=== PATIENT | male | born 1985 | race Caucasian/White ===

== ENCOUNTER 2024-11-24 09:03 | Emergency (ER) | payer OTHER, SELFPAY ==
[2024-11-24 09:05] VITALS: BP 142/104
--- NOTE | 2024-11-24 09:57 | ED.GENMED ---
History of Present Illness
General
Chief Complaint: Blood Sugar Problem
Source: patient
Time Seen by Provider: 11/24/24 09:46
History of Present Illness
History of Present Illness:
39-year-old male with past medical history of previously diagnosed type 2 diabetes (admits that he stopped taking his metformin well over a year ago) presenting to the emergency department after starting to check his blood sugars over the last 2
weeks noting that his blood sugars will go up as high as 270 as well as he has been having increased urinary frequency at nighttime. Patient denies any other symptoms but was concerned that he could still be diabetic and may need medication.
Patient states that he did start taking his metformin again a couple of days ago but states he has not noticed any change to his blood sugars during this time. Patient denies any abdominal pain, nausea, vomiting, bowel changes, chest pain
or shortness of breath, fevers or infectious symptoms or any other concerns.
Past History
Past History
ED Past Medical History: NIDDM
ED Past Surgical History: Appendectomy
Social History
Tobacco: Non-smoker
Alcohol: Occasional
Drug: None
Personal:
Living: with family
Employment: Employed
Review of Systems
Review of Systems
All Other Systems: ROS reviewed and negative except as documented in HPI and ROS
Phy Exam
Physical Exam
Physical Exam:
GENERAL: Alert , in no apparent distress
EYE: conjunctiva clear
NECK: Supple
ENT: o/p clr, mmm.
CARDIAC: Regular rate and rhythm
LUNGS: Clear breath sounds bilaterally, no acute respiratory distress, no wheezes/rales/rhonchi
NEUROLOGICAL: Alert and oriented
SKIN: Warm and dry, skin intact.
MUSCULOSKELETAL: well perfused.
PSYCH: Normal and appropriate interaction.
Scores
Heart Failure Risk
Heart Failure Risk Score: Not Applicable
Heart Score for Chest Pain Patients
STEMI patient?: Not applicable
Withdrawal Assessment of Alcohol
Withdrawal Assessment Completed?: Not applicable
Course
Orders/Labs/Results
Orders:
Orders
11/24/24 09:47
Bedside Glucose- Treatment ONCE
11/24/24 10:14
B-Hydroxybutyrate Urgent
Complete Blood Count/With Diff Urgent
Comprehensive Metabolic Panel Urgent
Hemoglobin A1c [Glycohemoglobin (HgbA1c)] Urgent
Urinalysis Reflex To Culture Urgent
Date Specimen was Collected: 11/24/24
Time Specimen was Collected: 10:02
Abnormal Lab Results
11/24/24
10:14
Absolute Monos (auto) 0.7 H 10^3/uL
(0.1-0.6)
Monocytes % 10.1 H %
(1.7-9.3)
Glucose 274 H mg/dl
(70-99)
Hemoglobin A1c 9.7 H %
(4.0-5.6)
Total Bilirubin 1.7 H mg/dl
(0.2-1.3)
Urine Ketones 1+ A
(Negative)
Urine Glucose 4+ A
(Negative)
11/24/24 10:14
11/24/24 10:14
Vital Signs
Initial and Last Documented VS:
Initial Vital Signs
Temp Pulse Resp BP Pulse Ox
98.6 F 78 18 142/104 100
11/24/24 09:05 11/24/24 09:05 11/24/24 09:05 11/24/24 09:05 11/24/24 09:05
Last Documented Vital Signs
Temp Pulse Resp BP Pulse Ox
98.6 F 70 13 140/84 100
11/24/24 09:05 11/24/24 11:00 11/24/24 11:00 11/24/24 10:58 11/24/24 09:05
MDM/Problems Addressed
Differential Diagnosis Includes:
Type 2 diabetes, less concern for DKA/HHNK, BPH, UTI
MDM/Problems Addressed:
39-year-old male presenting the ER for evaluation after noticing blood sugars were elevated over the last 2 weeks. Self admits that he was diagnosed with type 2 diabetes about 2 years ago, took metformin for a month or so and then stopped taking
the medication as he states he did not feel any different with the medication. Patient denies any fevers or infectious symptoms, states feels at his usual baseline currently. I am less suspicious for DKA/HHNK but will check labs. Patient
currently does not have a primary care provider. Will check a hemoglobin A1c and likely initiate patient on metformin 500 mg twice daily. I did advise patient that he can contact his insurance company to help getting him a primary care provider
and I also offered to notify her primary care referral line to help get him a primary provider through the [facility] network.
*Pulse Oximetry
Patient hypoxic: no
*Critical Care Note
Total Time (30-74mins, 75-104mins- exclusive of procedures): Not Applicable
Data Reviewed
Review of Other/Old Records Reveals: Labs and Records
Patient Management
Escalation/DeEscalation of care consider admission/obs:
Patient blood work noted for hyperglycemia but without any evidence for anion gap acidosis. Hemoglobin A1c 9.7. Discussed these results with patient and advised him that he likely has type 2 diabetes. Given patient does not currently have a
primary care provider will initiate him on 500 mg of metformin twice daily and provided him with a 1 month prescription of this. I also notified our primary care referral hotline to help patient get an expedited outpatient primary care provider
office visit. Patient aware of return precautions to the ER. Dietary modifications discussed. Stable for discharge home.
ED Attending Note
-
Portions of this chart may have been created with voice recognition software.� Occasional wrong word or��sound alike� substitutions may have occurred due to the inherent limitations of voice recognition software.
Discharge Plan
Departure
Patient Disposition: Home (Routine Discharge)
Date of Disposition: 11/24/24
Time of Disposition: 11:25
Patient with high blood pressure during this ER visit?: Yes
Discharge Problem:
Diabetes
Instructions: Type 2 Diabetes (DC)
Prescriptions:
New
metformin 500 mg tablet
500 mg PO BID Qty: 60 0RF
Referrals:
NONE,* [Family Provider] -
Interventions
Interventions:
*Risk Screen - Suicide Last Done: 11/24/24 09:05
*General Assessment Last Done: 11/24/24 10:57
*Neglect/Abuse Screening Last Done: 11/24/24 09:05
ED- Fall Risk Assessment Last Done: 11/24/24 10:57
*ED COVID-19 Vaccine History Last Done: 11/24/24 09:05
*Nursing Disposition Last Done: 11/24/24 11:34
ED- Neurological Assessment Last Done: 11/24/24 11:06
Discharge Date and Time
Discharge Date/Time: 11/24/24 12:01
Print Language: GEORGIAN
[2024-11-24 10:40] LABS: % Basophils 1.1 % (0-2); % Eosinophils 1.4 % (0-6); % Immature Granulocytes 0.3 % (0-0.5); % Lymphocytes 32.5 % (20.5-51.1); % Monocytes 10.1 % (1.7-9.3); % Neutrophils 54.6 % (42.2-75.2); Absolute Basophils 0.1 10^3/uL (0-0.2); Absolute Eosinophils 0.1 10^3/uL (0-0.7); Absolute Lymphocytes 2.1 10^3/uL (1.2-3.4); Absolute Monocytes 0.7 10^3/uL (0.1-0.6); Absolute Neutrophils 3.6 10^3/uL (1.4-6.5); Hemoglobin 15.3 g/dL (13.0-18.0); Mean Corpuscular Volume 82.4 fL (80.0-94.0); Mean Platelet Volume 9.3 fL (7.4-10.4); Nucleated Red Blood Cells % 0 % (-); Platelet Count 228 10^3/uL (130-400); Red Blood Cell Count 5.46 10^6/uL (4.70-6.10); Red Cell Dist. Width 12.4 % (11.5-14.5); White Blood Cell Count 6.5 10^3/uL (4.8-10.8)
[2024-11-24 10:47] LABS: Albumin 4.1 g/dl (3.5-5.0); Chloride 101 mmol/L (98-107); Potassium 4.2 mmol/L (3.5-5.1); Sodium 136 mmol/L (135-145); eGFR > 60.00
[2024-11-24 10:49] LABS: Urine Albumin Negative (Neg - Trace); Urine Bilirubin Negative (Negative); Urine Character Clear (Clear); Urine Color Yellow; Urine Glucose 4+ (Negative); Urine Ketone 1+ (Negative); Urine Leukocyte Negative (Negative); Urine Nitrite Negative (Negative); Urine Occult Blood Negative (Negative); Urine Specific Gravity 1.015 (<1.030); Urine Urobilinogen Negative (Neg - 1+)
[2024-11-24 10:51] LABS: ALT (SGPT) 47 U/L (0-50); AST (SGOT) 32 U/L (17-59); Alkaline Phosphatase 88 U/L (38-126); Blood Urea Nitrogen 10 mg/dl (9-20); Calcium 8.6 mg/dl (8.4-10.2); Carbon Dioxide 28 mmol/L (22-30); Glucose 274 mg/dl (70-99); Total Bilirubin 1.7 mg/dl (0.2-1.3); Total Protein 6.5 g/dl (6.3-8.2)
[2024-11-24 10:54] LABS: B-Hydroxybutyrate 0.18 mmol/L (0.02-0.27)
[2024-11-24 10:58] VITALS: BP 140/84; BMI 40.0
[2024-11-24 11:25] LABS: Glycohemoglobin (HgbA1c) 9.7 % (4.0-5.6)
== END 2024-11-24 12:01 | disposition home or self-care (01) ==
LOC: EMR 09:03
PROVIDERS: Physician Assistant Medical; EMERGENCY PHYSICIAN Emergency Medicine
DX: E11.65 Type 2 diabetes mellitus with hyperglycemia (principal); T38.3X6A Underdosing of insulin and oral hypoglycemic [antidiabetic] drugs, initial encounter; Z91.148 Patient's other noncompliance with medication regimen for other reason; R03.0 Elevated blood-pressure reading, without diagnosis of hypertension; R35.0 Frequency of micturition
CPT/HCPCS: 99283; 80053; 81003; 82010; 83036; 85025